=== PATIENT | male | born 1995 | race Caucasian/White ===

== ENCOUNTER 2021-05-01 17:56 | Emergency (ER) | payer BC ==
[~2021-05-01] VITALS: Ht 182.9 cm; Wt 72.6 kg
[2021-05-01 18:03] VITALS: BP_SYST 114
[2021-05-01] MEDS ORDERED: IBUP-1971 PO (18:15)
[2021-05-01] MEDS ORDERED: AMOX500C2 PO (18:15)
== END 2021-05-01 18:36 | disposition home or self-care (01) ==
LOC: SED 17:56
DX: K04.7 Periapical abscess without sinus (principal)
CPT/HCPCS: 99283